=== PATIENT | female | born 1985 | race Caucasian/White ===

== ENCOUNTER 2018-04-30 00:57 | Emergency (ER) | payer BC, MEDICAID ==
[2018-04-30] MEDS ORDERED: Sodium Chloride 0.9% 1,000 ML IV STA (01:19)
[2018-04-30 01:35] LABS: BASO # 0.1 K/uL (0.0-0.2); BASO % 0.5 % (0.0-2.0); EOS # 0.1 K/uL (0.0-0.7); EOS % 1.1 % (0.0-4.0); HEMOGLOBIN 12.8 g/dL (11.0-16.0); LYMPH # 2.1 K/uL (1.0-4.3); LYMPH % 20.3 % (20.0-40.0); MEAN CELL VOLUME 76.7 fL (81.0-99.0); MEAN CORPUSCULAR HGB CONC 33.8 g/dL (33.0-37.0); MEAN PLATELET VOLUME 9.3 fL (7.2-11.7); MONO # 0.6 K/uL (0.0-0.8); MONO % 5.7 % (0.0-10.0); NEUT # 7.6 K/uL (1.8-7.0); NEUT % 72.4 % (50.0-75.0); RBC 4.92 Mil/uL (3.80-5.20); WHITE BLOOD COUNT 10.5 K/uL (4.8-10.8)
[2018-04-30 01:46] LABS: ALB/GLOB RATIO 1.2 (1.0-2.1); ALBUMIN 4.1 g/dL (3.5-5.0); ALT/SGPT 28 U/L (9-52); AST/SGOT 19 U/L (14-36); BLOOD UREA NITROGEN 13 mg/dL (7-17); CALCIUM 9.3 mg/dl (8.6-10.4); GFR AFRICAN-AMERICAN > 60; GFR NON-AFRICAN AMERICAN > 60
[2018-04-30 01:50] LABS: SQUAMOUS EPITHIAL 2 /hpf (0-5); URINE BACTERIA RARE (<OCC); URINE BILIRUBIN NEGATIVE (NEGATIVE); URINE BLOOD 1+ (NEGATIVE); URINE CLARITY Hazy (Clear); URINE COLOR Yellow (YELLOW); URINE GLUCOSE (UA) NORMAL (Normal); URINE LEUKOCYTE ESTERASE 2+ Leu/uL (Negative); URINE PROTEIN NEGATIVE (NEGATIVE); URINE UROBILINOGEN NORMAL mg/dL (0.2-1.0)
[2018-04-30 01:53] LABS: HCG,QUALITATIVE URINE NEGATIVE (NEGATIVE)
[2018-04-30 01:54] LABS: D DIMER < 200 ng/mlDDU (0-243); INR 1.3; PARTIAL THROMBOPLASTIN TIME 30 SECONDS (21-34); PROTHROMBIN TIME 14.3 SECONDS (9.7-12.2)
[2018-04-30 02:10] LABS: BARBITURATES, UR NEGATIVE (NEGATIVE); BENZODIAZEPINES, UR NEGATIVE (NEGATIVE); OPIATES, UR NEGATIVE (NEGATIVE); PHENCYCLIDINE, UR NEGATIVE (NEGATIVE)
--- NOTE | 2018-04-30 02:28 | C.PDOC ---
History Of Present Illness 33 year old female presents to the ED c/o right side chest pain associated with right arm numbness and tingling. Patient reports she was driving when the symptoms started, decided to come in for an evaluation. Patient denies headache , blurry vision, SOB, weakness, numbness. Time Seen by Provider: 04/30/18 01:11 Chief Complaint (Nursing): Chest Pain History Per: Patient History/Exam Limitations: no limitations Onset/Duration Of Symptoms: Hrs Current Symptoms Are (Timing): Still Present Quality: "Pain" Modifying Factors: None Exacerbating Factors: None Alleviating Factors: None Recent travel outside of the [place]: No Additional History Per: Patient Past Medical History Reviewed: Historical Data, Nursing Documentation, Vital Signs Vital Signs: Last Vital Signs Temp 98.8 F 04/30/18 04:43 Pulse 98 H 04/30/18 04:43 Resp 16 04/30/18 04:43 BP 126/78 04/30/18 04:43 Pulse Ox 97 04/30/18 04:43 - Medical History PMH: No Chronic Diseases Surgical History: No Surg Hx - [facility] Procedures MONITORING NOS (06/21/14) LOW CERVICAL (06/21/14) PACKED CELL TRANSFUSION (05/15/14) Family History: States: Unknown Family Hx - Social History Hx Tobacco Use: No Hx Alcohol Use: No Hx Substance Use: No - Immunization History Hx Tetanus Toxoid Vaccination: Yes Hx Influenza Vaccination: Yes Hx Pneumococcal Vaccination: No Review Of Systems Constitutional: Negative for: Fever, Chills Cardiovascular: Positive for: Chest Pain. Negative for: Palpitations Respiratory: Negative for: Cough, Shortness of Breath Gastrointestinal: Negative for: Nausea, Vomiting Skin: Negative for: Rash Neurological: Positive for: Weakness, Numbness. Negative for: Headache, Dizziness Physical Exam - Physical Exam Appears: Non-toxic, No Acute Distress Skin: Normal Color, Warm, Dry Head: Atraumatic, Normacephalic Eye(s): bilateral: Normal Inspection Oral Mucosa: Moist Neck: Normal ROM, Supple Chest: Symmetrical, Tenderness (right side chest wall ) Cardiovascular: Rhythm Regular Respiratory: Normal Breath Sounds, No Rales, No Rhonchi, No Wheezing Gastrointestinal/Abdominal: Soft, No Tenderness, No Guarding, No Rebound Extremity: Normal ROM, No Tenderness, No Swelling Neurological/Psych: Oriented x3, Normal Speech Gait: Steady ED Course And Treatment - Laboratory Results Result Diagrams: 04/30/18 01:32 04/30/18 01:32 ECG: Interpreted By Me, Viewed By Me ECG Rhythm: Sinus Rhythm (arrhythmia) ECG Interpretation: No Acute Changes Rate From EC (BPM) O2 Sat by Pulse Oximetry: 99 (ON RA) Pulse Ox Interpretation: Normal - Radiology CXR: Interpreted by Me CXR Interpretation: No: No Acute Disease (RLL with ? haziness) Progress Note: Plan: - Labs ( D-Dimer was negative). - IV fluids. - Toradol 30 mg IVP. - EKG. - CXR. - UA (toxicology negative). CXR shows ? haziness in the RLL. Patient has no s/s of pneumonia. However CXr was sent to [facility] with prelim reading. Patient sts she doesn't want to wait for the result as she has a family emergency amnd wants to leave Ed immediately. patient is otherwise stable for discharge. Patient was informed she might be contacted if CXr reading will show any abnormality. On re-evaluation patient feels better and is stable to be d/c home with PMD follow up. Disposition - Disposition Disposition: HOSPITALIZED Disposition Time: 04:37 Condition: STABLE Additional Instructions: Follow up with your PMD within 1-2 days. Return to ED if feel worse. Prescriptions: Ibuprofen [Motrin Tab] 600 mg PO Q8 #30 tab Instructions: Costochondritis (DC) Forms: [employer] (Swedish) - Clinical Impression Clinical Impression: Chest wall pain - PA / [employer] / Resident Statement MD/DO has reviewed & agrees with the documentation as recorded. - Scribe Statement The provider has reviewed the documentation as recorded by the Scribe Poncho Negrete All medical record entries made by the Scribe were at my direction and personally dictated by me. I have reviewed the chart and agree that the record accurately reflects my personal performance of the history, physical exam, medical decision making, and the department course for this patient. I have also personally directed, reviewed, and agree with the discharge instructions and disposition.
[2018-04-30 02:50] VITALS: RESP 16
[2018-04-30 04:45] VITALS: BP 126/78; PULSE 98; TEMP 98.8
[2018-04-30 05:10] VITALS: O2SAT 99
--- NOTE | 2018-04-30 17:05 | RAD ---
HISTORY: COMPARISON: No prior. TECHNIQUE: Chest PA and lateral FINDINGS: LINES AND TUBES: None. LUNG AND PLEURA: The lungs are well inflated and clear. No pleural effusion or pneumothorax. There is mild peribronchial thickening and subsegmental atelectasis in the lung bases. HEART AND MEDIASTINUM: The heart is not enlarged. The hilar and mediastinal contours are within normal limits. SKELETAL STRUCTURES: The bony structures are within normal limits for the patient's age. VISUALIZED UPPER ABDOMEN: Normal. OTHER FINDINGS: None. IMPRESSION: No active pulmonary disease. Findings may represent reactive small airway disease/nonspecific bronchitis.
--- NOTE | 2018-05-02 19:56 | CARD ---
APPROVED REPORT EKG Measurement Heart [id number] <Conclusion> Normal sinus rhythm with sinus arrhythmia Normal ECG
== END 2018-04-30 04:45 | disposition home or self-care (01) ==
LOC: C.ER 00:57
DX: R07.89 Other chest pain (principal)
CPT/HCPCS: 71046; 80053; 81001; 82550; 82553; 84484; 84703; 85025; 85378; 85610; 85730; 93005; 96361; 96374; 99284; G0480; J1885; J7030